=== PATIENT | male | born 1985 | race African-American/Black ===

== ENCOUNTER 2019-09-01 08:00 | Outpatient (CLI) | payer MEDICARE ==
[2019-09-01] MEDS ORDERED: BUPRENORPHINE HC8 MG SL (13:24)
[2019-09-01] MEDS ORDERED: IBUPROFEN800 MG PO (13:25)
[2019-09-01] MEDS ORDERED: ALBUTEROL SULF8.5 GM INH (13:33)
== END 2019-09-01 08:01 | disposition home or self-care (01) ==
LOC: D.OPS 08:00 → D.PAN 09-02 13:15 → EDSTATUS 09-02 13:15
PROVIDERS: ATTEND Orthopaedic Surgery
DX: M75.41 Impingement syndrome of right shoulder (principal); M75.21 Bicipital tendinitis, right shoulder; S43.431A Superior glenoid labrum lesion of right shoulder, initial encounter; M13.819 Other specified arthritis, unspecified shoulder